=== PATIENT | female | born 1930 | race Caucasian/White ===

== ENCOUNTER 2017-04-04 17:36 | Emergency (ER) | payer MEDICARE, OTHER ==
[~2017-04-04] VITALS: Ht 149.9 cm; Wt 75.0 kg
[~2017-04-04 17:36] MED LIST: ALPR0.5T PO; ASPI-664 PO; BENA40TA41 PO; CALC1TAB79 PO; CARV12.579 PO; DOCU-159 PO; EZET10TA3 PO; FER325 PO; FURO40TA4 PO; IBUP-1542 PO; ISOS30TA5 PO; LEVO25TA50 PO; MONT10TA21 PO; NIT4 SL; OMEP40CA6 PO; PARO10TA26 PO; SIME80TA PO; SIMV10TA PO; SITA100T8 PO; TRAV2.5D BOTH EYES; UDROBDM PO
[2017-04-04 17:40] VITALS: Ht 149.9 cm; Wt 75.0 kg
[2017-04-04] MEDS ORDERED: LABETALOL HCL 20MG INJ IV ONE ×2 (19:00→22:00)
[2017-04-04] MEDS ORDERED: SOD CHLORIDE 0.9% 500 ML IV STA (19:00)
--- NOTE | 2017-04-04 19:33 | RADRPT ---
PROCEDURE: CT Brain without contrast. CLINICAL INDICATION: Head injury status post fall and pain TECHNIQUE: A CT of the brain was performed on a [employer] 64-slice CT scanner utilizing axial imaging from the skull base through the vertex without IV contrast. Multiplanar reformatted images were made. Images were reviewed on a PACS workstation. The CTDIvol is 44.88 mGy and the DLP is 72 0.23 mGycm. One of the following 3 dose reduction techniques were used: Automated exposure control; adjustment of the mA and/or kV according to patient size; or use of iterative reconstruction technique. COMPARISON: 04/06/[address] FINDINGS: There is no intracranial hemorrhage, mass effect, or midline shift. No extra-axial fluid collection is seen. The ventricles and sulci are age appropriate. Mild diffuse volume loss is present. Confl uent decreased attenuation is present in the bilateral subcortical white matter, centrum semiovale, and periventricular white matter compatible with mild chronic microvascular ischemic disease. Mild vascular calcifications are present of the intracranial internal carotid arteries. The visualized scalp and calvarium are remarkable for right frontal parietal scalp hematoma without underlying fracture. The bilateral orbits demonstrate prior lens replacement. The bilateral parana rigo sinuses, mastoid air cells and middle ear cavities are clear. IMPRESSION: 1. No evidence of acute hemorrhage, infarcts, or acute intracranial pathology. 2. Mild chronic microvascular ischemic disease increased from prior CT. 3. Mild diffuse volume loss 4. Mild atherosclerotic vascular disease 5. Right posterior frontal and parietal scalp hematoma without underlying fracture. RPTAT: HDC .Marla Lomeli MD, Date Time Electronically viewed and signed by .Marla Lomeli MD, MD on 04/04/2017 19:32 .C/
--- NOTE | 2017-04-04 19:39 | ERD ---
ER Documentation Chief Complaint Date/Time DATE: 04/04/17 TIME: 19:39 Chief Complaint head bump s/p fell trying to sit on walker today HPI This 78-year-old female fell today when she was trying to sit on her walker but missed it by a few inches. She slid to the side and hit her head on a wooden chair. She did not hit her head on the ground. She has a bump on her head where she has pain at the site but does not have a headache otherwise. She did not have any chest pain shortness of breath or lightheadedness. She has been feeling well all day and still feels well except for the bump on her head. She did not take her evening blood pressure medicines. ROS All systems reviewed and are negative except as per history of present illness. Medications Home Meds Active Scripts Acetaminophen* (Tylophen*) 500 Mg Capsule, 500 MG PO Q6H Y for PAIN, #14 TAB Prov:BARNEY VANG DO 04/04/17 Carvedilol* (Carvedilol*) 12.5 Mg Tablet, 12.5 MG PO BID, #60 TAB Prov:CHELLE FANG MD 07/28/16 Benazepril Hcl* (Benazepril Hcl*) 40 Mg Tablet, 40 MG PO DAILY, #30 TAB Prov:CHELLE FANG MD 07/28/16 Reported Medications Isosorbide Mononitrate* (Isosorbide Mononitrate*) 30 Mg Tab.er.24h, 30 MG PO BID , TAB 04/04/17 Losartan Potassium* (Losartan Potassium*) 100 Mg Tablet, 100 MG PO DAILY, TAB 04/04/17 Hydralazine Hcl* (Hydralazine Hcl*) 50 Mg Tab, 50 MG PO TID, #90 TAB 04/04/17 Furosemide* (Furosemide*) 40 Mg Tablet, 40 MG PO BID, TAB 04/04/17 Loratadine* (Loratadine*) 10 Mg Tablet, 10 MG PO DAILY, #30 TAB 04/04/17 Ezetimibe* (Zetia*) 10 Mg Tablet, 10 MG PO HS, TAB 07/12/16 Paroxetine Hcl* (Paxil*) 10 Mg Tablet, 10 MG PO DAILY, TAB 07/12/16 Omeprazole* (Omeprazole*) 40 Mg Capsule.dr, 40 MG PO DAILY, #30 CAP 07/12/16 Montelukast Sodium* (Singulair*) 10 Mg Tablet, 10 MG PO QHS, #30 TAB 07/12/16 Aspirin (Low Dose Aspirin) 81 Mg Tablet.dr, 81 MG PO DAILY, #30 TAB 07/12/16 Sitagliptin* (Januvia*) 100 Mg Tablet, 100 MG PO DAILY, #30 TAB 07/12/16 Calcium Carbonate/Vitamin D3 (Oysco 500+D Tablet) 1 Each Tablet, 1 EACH PO BID, TAB 07/12/16 Levothyroxine Sodium* (Levoxyl*) 25 Mcg Tablet, 25 MCG PO BEFORE BREAKFAST, #30 TAB 07/12/16 Docusate Sodium* (Docusate Sodium*) 100 Mg Capsule, 100 MG PO DAILY, #30 CAP 07/12/16 Alprazolam* (Xanax*) 0.5 Mg Tab, 0.5 MG PO QHS Y for SLEEP, TAB 08/13/14 Discontinued Reported Medications Simvastatin* (Zocor*) 10 Mg Tablet, 10 MG PO QHS, #30 TAB 07/12/16 Travoprost* (Travatan Z*) 2.5 Ml Drops, 1 DROP BOTH EYES HS, #1 BOTTLE 07/12/16 Ferrous Sulfate* (Ferrous Sulfate*) 325 Mg Tabec, 325 MG PO DAILY, TAB 07/12/16 Ibuprofen* (Motrin*) 600 Mg Tab, 600 MG PO TID Y for PAIN, TAB 04/06/15 Discontinued Scripts Guaifenesin-Dextromethorphan* (Robitussin* DM) 100MG/10MG/5ML Syrup, 5 ML PO Q6H Y for COUGH, #100 ML Prov:CHELLE FANG MD 07/28/16 Isosorbide Mononitrate* (Isosorbide Mononitrate*) 30 Mg Tab.er.24h, 30 MG PO DAILY, #30 TAB Prov:CHELLE FANG MD 07/28/16 Furosemide* (Furosemide*) 40 Mg Tablet, 20 MG PO BID, #60 TAB Prov:CHELLE FANG MD 07/28/16 Nitroglycerin* (Nitrostat*) 25 Tab Subl, 1 TAB SL Q5M Y for CHEST PAIN, #30 Prov:CHELLE FANG MD 07/28/16 Simethicone* (Anti-Gas/80*) 80 Mg Tab.chew, 80 MG PO Q6H Y for DISTENSION/GAS/ BLOATING, #100 TAB.CHEW Prov:AIDAN WHITMAN MD 02/04/16 Allergies Allergies: Coded Allergies: oxycodone (Verified Allergy, Mild, ITCHING-NO RASHES(PT + DAUGHTER [place] W/ OXYCODONE -03/07/11), 04/04/17) Penicillins (Verified Allergy, Unknown, HIVES, 04/04/17) PMhx/Soc History of Surgery: Yes Anesthesia Reaction: No Hx Neurological Disorder: No Hx Respiratory Disorders: Yes Hx Cardiac Disorders: Yes (HTN) Hx Psychiatric Problems: Yes Hx Miscellaneous Medical Probl: Yes (ANXIETY, DM, HLD, hypothyroid) Hx Alcohol Use: No Hx Substance Use: No Hx Tobacco Use: No Smoking Status: Never smoker Physical Exam Vitals Vital Signs Date Time Temp Pulse Resp B/P Pulse Ox O2 Delivery O2 Flow Rate FiO2 04/04/17 22:20 76 18 195/74 93 Room Air 04/04/17 20:00 69 18 197/84 98 Room Air 04/04/17 17:40 97.6 68 20 248/110 94 Physical Exam Const: [] No acute distress Head: Very site swelling with no skin break of the right superior occipital portion of the scalp. Eyes: Normal Conjunctiva, EOMI, JENNI ENT: Normal External Ears, Nose and Mouth. Neck: Full range of motion..~ No meningismus. Resp: Clear to auscultation bilaterally Cardio: Regular rate and rhythm, no murmurs Abd: Soft, non tender, non distended. Normal bowel sounds Skin: No petechiae or rashes Back: No midline or flank tenderness Ext: No cyanosis, or edema Neur: Awake and alert and oriented 3, cranial nerves II through XII intact, no cerebellar deficits Psych: Normal Mood and Affect Result Diagram: 04/04/17195404/04/171954 Results 24 hrs Laboratory Tests Test 04/04/17 19:55 04/04/17 19:57 04/04/17 20:25 White Blood Count 8.310^3/ul Red Blood Count 4.2210^6/ul Hemoglobin 12.7g/dl Hematocrit 38.8% Mean Corpuscular Volume 91.9fl Mean Corpuscular Hemoglobin 30.1pg Mean Corpuscular Hemoglobin Concent 32.7g/dl Red Cell Distribution Width 14.5% Platelet Count 21833^3/UL Mean Platelet Volume 11.2fl Neutrophils % 60.9% Lymphocytes % 22.5% Monocytes % 10.9% Eosinophils % 4.5% Basophils % 0.8% Nucleated Red Blood Cells % 0.0/100WBC Neutrophils # 5.010^3/ul Lymphocytes # 1.910^3/ul Monocytes # 0.910^3/ul Eosinophils # 0.410^3/ul Basophils # 0.110^3/ul Nucleated Red Blood Cells # 0.010^3/ul Prothrombin Time 12.6Sec Prothrombin Time Ratio 1.0 INR International Normalized Ratio 0.94 Activated Partial Thromboplast Time 27.1Sec Sodium Level 136mmol/L Potassium Level 3.7mmol/L Chloride Level 95mmol/L Carbon Dioxide Level 29mmol/L Anion Gap 16 Blood Urea Nitrogen 9mg/dl Creatinine 0.55mg/dl Glucose Level 107mg/dl Calcium Level 9.1mg/dl Troponin I < 0.012ng/ml Bedside Glucose 109mg/dL Urine Color COLORLESS Urine Clarity CLEAR Urine pH 8.0 Urine Specific [place] 1.002 Urine Ketones NEGATIVEmg/dL Urine Nitrite NEGATIVEmg/dL Urine Bilirubin NEGATIVEmg/dL Urine Urobilinogen NEGATIVEmg/dL Urine Leukocyte Esterase NEGATIVELeu/ul Urine Microscopic RBC 1/HPF Urine Microscopic WBC 0/HPF Urine Hemoglobin 2+mg/dL Urine Glucose NEGATIVEmg/dL Urine Total Protein NEGATIVEmg/dl Current Medications Medications (Trade) Dose Ordered Sig/Darrian Route PRN Reason Start Time Stop Time Status Last Admin Dose Admin Sodium Chloride (NS) 500 ml @ 500 mls/hr Q1H STAT IV 04/04/17 19:00 04/04/17 19:59 DC 04/04/17 20:03 Labetalol HCl (Labetalol) 20 mg ONCE ONCE IV 04/04/17 19:00 04/04/17 19:03 DC 04/04/17 20:03 Labetalol HCl (Labetalol) 40 mg ONCE ONCE IV 04/04/17 22:00 04/04/17 22:01 DC 04/04/17 22:06 Acetaminophen (Tylenol Tab) 1,000 mg ONCE STAT PO 04/04/17 21:35 04/04/17 21:36 DC 04/04/17 21:54 Hydralazine HCl (Apresoline) 50 mg ONCE ONCE PO 04/04/17 23:00 04/04/17 23:01 Procedures/MDM Mechanical fall and 86-year-old female can well describe the mechanism and remembers everything. Also hypertensive urgency requiring multiple doses of labetalol secondary to patient missing her nighttime meds and possibly needing medication adjustment. She was also given Tylenol for her head pain. Full workup was obtained for any cardiac issues considering her high blood pressure and advanced age. She had a negative head CT is not any blood thinners. She also has no signs of cardiac ischemia or infection. The patient wants to go home very badly and has family support with her. Only promises they will take her to see her primary care doctor tomorrow morning to get her blood pressure rechecked. I am giving her a dose of hydralazine to prevent any rebound hypertension and control the blood pressure overnight. Primary care follow-up tomorrow. Return precautions given EKG interpretation: Normal sinus rhythm rate of 88, right bundle branch block, normal axis, no ST or T-wave changes concerning for acute ischemia. Chest x-ray interpretation: I see no acute process, no pneumothorax, no infiltrate, no pulmonary edema, no fractures Brain CT interpretation: See no acute process, no hemorrhage, no mass-effect or midline shift. There is soft tissue swelling in the occipital area p Critical care time 44 minutes: This includes managing refractory hypertension at levels that would "require ICU admission if patient could not be controlled. Multiple doses of labetalol for a total of 60 mg use, all visits patient's bedside to reassess her cardiodynamics status, review of chart, discussion with patient and her family. Departure Diagnosis: Primary Impression: Hypertensive urgency Additional Impression: Acute head injury Condition: Stable BARNEY VANG DO Apr 04, 2017 19:39
[2017-04-04 20:11] LABS: BASOPHIL # 0.1 10^3/ul (0.0-0.1); BASOPHILS % 0.8 % (0.0-2.0); EOSINOPHILS # 0.4 10^3/ul (0.0-0.5); EOSINOPHILS % 4.5 % (0.0-7.0); HEMATOCRIT 38.8 % (37.0-47.0); HEMOGLOBIN 12.7 g/dl (12.0-16.0); LYMPHOCYTES # 1.9 10^3/ul (0.8-2.9); LYMPHOCYTES % 22.5 % (15.0-51.0); MEAN CORPUSCULAR HEMOGLOBIN 30.1 pg (29.0-33.0); MEAN CORPUSCULAR HGB CONC 32.7 g/dl (32.0-37.0); MEAN CORPUSCULAR VOLUME 91.9 fl (82.0-101.0); MEAN PLATELET VOLUME 11.2 fl (7.4-10.4); MONOCYTE # 0.9 10^3/ul (0.3-0.9); MONOCYTES % 10.9 % (0.0-11.0); NEUTROPHILS % 60.9 % (39.0-77.0); PLATELET COUNT 200 10^3/UL (140-415); RED BLOOD COUNT 4.22 10^6/ul (4.20-5.40); RED CELL DISTRIBUTION WIDTH 14.5 % (11.5-14.5); WHITE BLOOD COUNT 8.3 10^3/ul (4.8-10.8)
[2017-04-04 20:26] LABS: INR 0.94; PROTIME 12.6 Sec (12.2-14.2)
[2017-04-04 20:27] LABS: PARTIAL THROMBOPLASTIN TIME 27.1 Sec (25.0-35.0)
[2017-04-04 20:30] LABS: ANION GAP 16 (8-16); BLOOD UREA NITROGEN 9 mg/dl (7-20); CALCIUM 9.1 mg/dl (8.4-10.2); CARBON DIOXIDE 29 mmol/L (21-31); CHLORIDE 95 mmol/L (97-110); CREATININE 0.55 mg/dl (0.44-1.00); GLUCOSE 107 mg/dl (70-220); POTASSIUM 3.7 mmol/L (3.5-5.1); SODIUM 136 mmol/L (135-144)
[2017-04-04 20:42] LABS: TROPONIN-I < 0.012 ng/ml (0.00-0.12)
[2017-04-04 20:52] LABS: ADD UMIC YES; UR ASCORBIC ACID NEGATIVE (NEGATIVE); UR BILIRUBIN (Dip) NEGATIVE (NEGATIVE); UR BLOOD (Dip) 2+ mg/dL (NEGATIVE); UR CLARITY CLEAR (CLEAR); UR COLOR COLORLESS (YELLOW); UR GLUCOSE (Dip) NEGATIVE (NEGATIVE); UR KETONES (Dip) NEGATIVE (NEGATIVE); UR LEUKOCYTE ESTERASE (Dip) NEGATIVE Leu/ul (NEGATIVE); UR NITRITE (Dip) NEGATIVE (NEGATIVE); UR RBC 1 /HPF (0-5); UR SPECIFIC GRAVITY (Dip) 1.002 (1.003-1.030); UR TOTAL PROTEIN (Dip) NEGATIVE (NEGATIVE); UR UROBILINOGEN (Dip) NEGATIVE (NEGATIVE)
[2017-04-04] MEDS ORDERED: LORA10TA3 PO (21:13)
[2017-04-04] MEDS ORDERED: FURO40TA4 PO (21:13)
[2017-04-04] MEDS ORDERED: HYDR-3672 PO (21:14)
[2017-04-04] MEDS ORDERED: LOSA100T7 PO (21:14)
[2017-04-04] MEDS ORDERED: ISOS30TA5 PO (21:16)
--- NOTE | 2017-04-04 21:19 | RADRPT ---
PROCEDURE: XR Chest. CLINICAL INDICATION: Syncope and dyspnea TECHNIQUE: AP Portable chest. COMPARISON: 07/27/2016 chest x-ray FINDINGS: The soft tissues and bones are remarkable for generalized osteopenia. Calcification is noted at the left rotator cuff which may represent calcific tendinopathy. Mild dextroscoliosis and thoracic spo ndylosis is present. Mild cardiomegaly is present with vascular calcifications of the thoracic aort a. Mild cardiogenic pulmonary venous hypertension is present.. No pneumothorax is present. IMPRESSION: 1. Mild cardiogenic pulmonary venous hypertension 2. Mild cardiomegaly and atherosclerotic vascular disease 3. Generalized osteopenia, dextroscoliosis, thoracic spondylosis, and left rotator cuff tendinopath y. RPTAT: HDC .Marla Lomeli MD, Date Time Electronically viewed and signed by .Marla Lomeli MD, on 04/04/2017 21:19 .C/
[2017-04-04] MEDS ORDERED: ACETAMINOPHEN 500 MG TAB PO STA (21:35)
[2017-04-04] MEDS ORDERED: ACET500C5 PO (22:36)
[2017-04-04 23:00] VITALS: BP 164/76; PULSE 75; RESP 18
== END 2017-04-04 23:15 | disposition home or self-care (01) ==
LOC: E/R 17:36
DX: I16.0 Hypertensive urgency (principal); I10 Essential (primary) hypertension; E11.9 Type 2 diabetes mellitus without complications; E03.9 Hypothyroidism, unspecified; R55 Syncope and collapse; W01.190A Fall on same level from slipping, tripping and stumbling with subsequent striking against furniture, initial encounter; Y92.9 Unspecified place or not applicable; Z79.82 Long term (current) use of aspirin
CPT/HCPCS: 36415; 70450; 71010; 80048; 81001; 82962; 84484; 85025; 85610; 85730; 93005; 96374; 96376; 99285; J7040; P9612